=== PATIENT | male | born 1950 | race Caucasian/White ===

== ENCOUNTER → 2017-03-11 10:19 | Outpatient (CLI) | payer MEDICARE, OTHER ==
[2016-04-21 08:00] VITALS: BMI 29.9
[~2017-03-11 10:19] MED LIST: ASPIRIN325 MG PO; ASPIRIN81 MG PO; CRESTOR20 MG PO; DIOVAN160 MG PO; NORVASC5 MG PO; PLAVIX75 MG PO; ULTRAM50 MG PO
== END | disposition home or self-care (01) ==
LOC: D.CT 10:19
DX: I71.4 Abdominal aortic aneurysm, without rupture (principal)

== ENCOUNTER → 2017-03-18 14:34 | Outpatient (CLI) | payer MEDICARE, OTHER ==
[2016-04-21 08:00] VITALS: BMI 29.9
== END | disposition home or self-care (01) ==
LOC: D.US 14:34
DX: I65.23 Occlusion and stenosis of bilateral carotid arteries (principal)